=== PATIENT | female | born 1980 | race Caucasian/White ===

== ENCOUNTER → 2016-11-09 | Outpatient (CLI) | payer BC ==
[~2016-11-09] MED LIST: DOCU-150 PO; HYDR-523 PO; ONDA4TAB51 PO
[2016-11-09 07:54] LABS: BASOPHILS % 0.6 % (0.0-2.0); EOSINOPHILS % 2.4 % (0.0-5.0); HEMATOCRIT. 35.8 % (36.0-48.0); HEMOGLOBIN. 11.8 g/dL (12.0-16.0); LYMPHOCYTES % 23.3 % (20.0-50.0); MEAN CORPUSCULAR HEMOGLOBIN 26.9 pg (28.0-32.0); MEAN CORPUSCULAR VOLUME 81.6 fL (81.0-99.0); MEAN PLATELET VOLUME 9.1 fl (7.4-10.4); NEUTROPHILS % 66.7 % (40.0-76.0); PLATELET 302 x1000/uL (130-400); RED BLOOD CELL COUNT 4.39 mill/uL (4.2-5.4); RED CELL DISTRIBUTION WIDTH 15.2 % (11.6-14.6); WHITE BLOOD COUNT 9.5 x1000/uL (4.5-11.0)
[2016-11-09 08:41] LABS: ALANINE AMINOTRANSFERASE 16 IU/L (13-61); ALBUMIN 3.2 g/dL (3.4-5.0); ANION GAP 11; CALCIUM 8.8 mg/dL (8.5-10.1); CARBON DIOXIDE 29 mEq/L (21-32); CHLORIDE 103 mEq/L (98-107); HDL CHOLESTEROL 73 mg/dL (40-59); INDEX HEMOLYSI 1 (1-3); INDEX ICTERIC 1 (1-4); INDEX LIPEMIC 1 (1-3); IRON 51 ug/dL (50-175); LDL CHOLESTEROL 92 mg/dL (5-100); TOTAL IRON BINDING CAPACITY 436 ug/dL (250-450); TRIGLYCERIDE 58 mg/dL (0-150); UREA NITROGEN BLOOD 15 mg/dL (7-21); eGFR > 60 mL/min (>60)
[2016-11-09 08:54] LABS: FOLIC ACID (FOLATE) SERUM 14.4 ng/mL (>5.38)
[2016-11-10 13:06] LABS: VITAMIN D 25-OH 21.9 ng/mL (30.0-100.0)
[2016-11-14 04:20] LABS: CHOCOLATE COCOA ALLERGEN < 0.10 kU/L (Class 0)
== END | disposition home or self-care (01) ==
LOC: LAB 07:19
PROVIDERS: ATTEND Internal Medicine Geriatric Medicine
DX: Z00.00 Encounter for general adult medical examination without abnormal findings (principal)
CPT/HCPCS: 36415; 80053; 80061; 82306; 82607; 82728; 82746; 83540; 83550; 84443; 85025; 86003; 86005; 86592

== ENCOUNTER 2017-05-12 10:37 | Emergency (ER) | payer BC ==
[~2017-05-12] VITALS: Ht 165.1 cm; Wt 86.0 kg
[2017-05-12] MEDS ORDERED: FAMOTIDINE 20MG/2ML VIAL IV STA (11:59)
[2017-05-12] MEDS ORDERED: VISCOUS LIDOCAINE 2% 15 ML UDC PO STA (11:59)
[2017-05-12] MEDS ORDERED: SODIUM CHLORIDE 0.9% 1,000 ML IV ONE (11:59)
[2017-05-12] MEDS ORDERED: MAGNESIUM/ALUMINUM HYDROXIDE/SIMETHICONE 30ML UDC PO STA (11:59)
[2017-05-12 12:12] LABS: HEMATOCRIT. 36.2 % (36.0-48.0); HEMOGLOBIN. 11.9 g/dL (12.0-16.0); MEAN CORPUSCULAR HEMOGLOBIN 27.6 pg (28.0-32.0); MEAN CORPUSCULAR VOLUME 83.8 fL (81.0-99.0); MEAN PLATELET VOLUME 9.1 fl (7.4-10.4); PLATELET 266 x1000/uL (130-400); RED BLOOD CELL COUNT 4.32 mill/uL (4.2-5.4); RED CELL DISTRIBUTION WIDTH 15.4 % (11.6-14.6)
[2017-05-12 12:17] LABS: CHLORIDE 105 mEq/L (98-107)
[2017-05-12 12:18] LABS: PROTHROMBIN TIME 10.1 sec (9.4-11.6)
[2017-05-12 12:28] LABS: CARBON DIOXIDE 27 mEq/L (21-32)
[2017-05-12 13:36] LABS: PLATELET ESTIMATE NORMAL
[2017-05-12] MEDS ORDERED: KETOROLAC 30MG/ML VIAL IV ONE (14:15)
[2017-05-12 15:25] VITALS: BP 128/73
== END 2017-05-12 15:58 | disposition home or self-care (01) ==
LOC: ER 10:46
DX: R10.13 Epigastric pain (principal); R11.0 Nausea; I49.9 Cardiac arrhythmia, unspecified; I95.9 Hypotension, unspecified; I51.9 Heart disease, unspecified
CPT/HCPCS: 36415; 80053; 81025; 83690; 85025; 85610; 96361; 96374; 96375; 99284; J1885; J3490; J7030

== ENCOUNTER → 2018-08-26 | Outpatient (CLI) | payer BC ==
[2018-08-26 09:24] LABS: BASOPHILS % 0.8 % (0.0-2.0); EOSINOPHILS % 1.8 % (0.0-5.0); HEMOGLOBIN. 12.4 g/dL (12.0-16.0); LYMPHOCYTES % 21.5 % (20.0-50.0); MEAN CORPUSCULAR HEMOGLOBIN 29.2 pg (28.0-32.0); MEAN CORPUSCULAR VOLUME 89.4 fL (81.0-99.0); MEAN PLATELET VOLUME 8.8 fl (7.4-10.4); MONOCYTES % 6.9 % (2.0-8.0); PLATELET 298 x1000/uL (130-400); RED BLOOD CELL COUNT 4.25 mill/uL (4.2-5.4); RED CELL DISTRIBUTION WIDTH 14.3 % (11.6-14.6)
[2018-08-26 09:28] LABS: CLARITY URINE CLEAR (CLEAR); COLOR URINE YELLOW (YELLOW); KETONES URINE NEGATIVE (NEGATIVE); LEUKOCYTE ESTERASE URINE NEGATIVE (NEGATIVE); NITRITE URINE NEGATIVE (NEGATIVE); OCCULT BLOOD URINE 3+ (NEGATIVE); PROTEIN URINE NEGATIVE (NEGATIVE); SPECIFIC GRAVITY URINE 1.023 (1.005-1.030); UROBILINOGEN URINE 0.2 E.U./dL (0.2-1.0)
[2018-08-26 09:43] LABS: CHLORIDE 109 mEq/L (98-107)
[2018-08-26 09:49] LABS: TOTAL IRON BINDING CAPACITY 459 ug/dL (250-450)
[2018-08-26 10:16] LABS: VITAMIN B12 SERUM 1517 pg/mL (211-911)
== END | disposition home or self-care (01) ==
LOC: LAB 07:20
PROVIDERS: ATTEND Internal Medicine Geriatric Medicine
DX: Z00.01 Encounter for general adult medical examination with abnormal findings (principal); N39.0 Urinary tract infection, site not specified
CPT/HCPCS: 36415; 82306; 82607; 83540; 83550; 84443; 86592

== ENCOUNTER 2019-06-09 09:43 | Emergency (ER) | payer BC ==
[~2019-06-09] VITALS: Ht 165.1 cm; Wt 82.0 kg
[2019-06-09 10:47] VITALS: BP 121/86
== END 2019-06-09 11:01 | disposition home or self-care (01) ==
LOC: ER 09:43
DX: H10.33 Unspecified acute conjunctivitis, bilateral (principal); L25.9 Unspecified contact dermatitis, unspecified cause; Z98.890 Other specified postprocedural states; Z79.899 Other long term (current) drug therapy
CPT/HCPCS: 99281

== ENCOUNTER → 2019-06-26 | Outpatient (CLI) | payer BC ==
[2019-06-26 16:54] LABS: BASOPHILS % 0.6 % (0.0-2.0); EOSINOPHILS % 1.6 % (0.0-5.0); HEMATOCRIT. 35.4 % (36.0-48.0); HEMOGLOBIN. 11.9 g/dL (12.0-16.0); LYMPHOCYTES % 24.1 % (20.0-50.0); MEAN CORPUSCULAR HEMOGLOBIN 29.9 pg (28.0-32.0); MEAN CORPUSCULAR VOLUME 88.8 fL (81.0-99.0); MONOCYTES % 8.9 % (2.0-8.0); NEUTROPHILS % 64.8 % (40.0-76.0); PLATELET 268 x1000/uL (130-400); RED BLOOD CELL COUNT 3.99 mill/uL (4.2-5.4); RED CELL DISTRIBUTION WIDTH 13.8 % (11.6-14.6)
[2019-06-26 17:01] LABS: CHLORIDE 105 mEq/L (98-107)
[2019-06-26 17:06] LABS: TOTAL IRON BINDING CAPACITY 381 ug/dL (250-450)
[2019-06-26 17:07] LABS: LDL CHOLESTEROL 85 mg/dL (5-100)
[2019-06-26 17:08] LABS: HDL CHOLESTEROL 79 mg/dL (40-59)
[2019-06-26 17:10] LABS: CLARITY URINE CLEAR (CLEAR); COLOR URINE YELLOW (YELLOW); KETONES URINE NEGATIVE (NEGATIVE); LEUKOCYTE ESTERASE URINE NEGATIVE (NEGATIVE); NITRITE URINE NEGATIVE (NEGATIVE); OCCULT BLOOD URINE 1+ (NEGATIVE); PH URINE 6.5 (4.5-8.0); PROTEIN URINE NEGATIVE (NEGATIVE); SPECIFIC GRAVITY URINE 1.013 (1.005-1.030); UROBILINOGEN URINE 0.2 E.U./dL (0.2-1.0)
[2019-06-26 17:19] LABS: FERRITIN 12 ng/mL (10-291)
[2019-06-26 17:31] LABS: VITAMIN B12 SERUM 766 pg/mL (211-911)
== END | disposition home or self-care (01) ==
LOC: LAB 06:38
PROVIDERS: ATTEND Internal Medicine Geriatric Medicine
DX: Z00.00 Encounter for general adult medical examination without abnormal findings (principal)
CPT/HCPCS: 36415; 80061; 81003; 82306; 82607; 82728; 83036; 83540; 83550; 84443; 86592

== ENCOUNTER → 2020-06-18 | Outpatient (CLI) | payer OTHER | END | disposition home or self-care (01) | LOC: LAB 07:43 | PROVIDERS: ATTEND Internal Medicine Critical Care Medicine | DX: Z20.828 Contact with and (suspected) exposure to other viral communicable diseases (principal) | CPT/HCPCS: 87426 ==

== ENCOUNTER 2022-10-27 12:19 | Emergency (ER) | payer BC, OTHER ==
[~2022-10-27] VITALS: Ht 167.6 cm; Wt 104.0 kg
[2022-10-27 12:57] VITALS: BP 150/85
== END 2022-10-27 16:01 | disposition home or self-care (01) ==
LOC: ER 12:19
DX: H61.23 Impacted cerumen, bilateral (principal)
CPT/HCPCS: 69209; 69210; 99282

== ENCOUNTER → 2023-07-27 | Outpatient (CLI) | payer BC ==
[2023-07-27 11:05] LABS: BASOPHILS % 0.5 % (0.0-2.0); EOSINOPHILS % 1.8 % (0.0-5.0); HEMATOCRIT. 38.4 % (36.0-48.0); HEMOGLOBIN. 12.5 g/dL (12.0-16.0); LYMPHOCYTES % 24.7 % (20.0-50.0); MEAN CORPUSCULAR HEMOGLOBIN 28.4 pg (28.0-32.0); MEAN CORPUSCULAR HGB CONC 32.6 g/dL (31.0-37.0); MEAN CORPUSCULAR VOLUME 87.2 fL (81.0-99.0); MEAN PLATELET VOLUME 8.8 fl (7.4-10.4); MONOCYTES % 6.3 % (2.0-8.0); NEUTROPHILS % 66.7 % (40.0-76.0); PLATELET 321 x1000/uL (130-400); RED CELL DISTRIBUTION WIDTH 14.3 % (11.6-14.6)
[2023-07-27 11:34] LABS: ALANINE AMINOTRANSFERASE 13 IU/L (10-49); ALBUMIN 4.1 g/dL (3.2-4.8); ASPARTATE AMINOTRANSFERASE 12 IU/L (<34); BILIRUBIN TOTAL 0.4 mg/dL (0.1-1.0); CARBON DIOXIDE 24 mEq/L (21-32); CHLORIDE 104 mEq/L (98-107); CHOLESTEROL 195 mg/dL (<200); CREATININE 0.6 mg/dL (0.6-1.0); GLUCOSE 98 mg/dL (70-105); HDL CHOLESTEROL 61 mg/dL (>65); LDL CHOLESTEROL 109 mg/dL (5-100); PROTEIN TOTAL 7.3 g/dL (6.0-8.3); SODIUM 136 mEq/L (136-145); T4 FREE 1.14 ng/dL (0.89-1.76); THYROID STIMULATING HORMONE 1.36 uIU/mL (0.55-4.78); TRIGLYCERIDE 72 mg/dL (0-150); UREA NITROGEN BLOOD 16 mg/dL (9-23)
== END | disposition home or self-care (01) ==
LOC: LAB 10:07
PROVIDERS: ATTEND Family Medicine Adult Medicine
DX: Z00.00 Encounter for general adult medical examination without abnormal findings (principal); E78.5 Hyperlipidemia, unspecified; D50.9 Iron deficiency anemia, unspecified
CPT/HCPCS: 36415; 80053; 80061; 83735; 84439; 84443; 84481; 85025

== ENCOUNTER → 2023-08-11 | Outpatient (CLI) | payer BC | END | disposition home or self-care (01) | LOC: RAD 10:37 | DX: M47.817 Spondylosis without myelopathy or radiculopathy, lumbosacral region (principal); M48.07 Spinal stenosis, lumbosacral region; M48.02 Spinal stenosis, cervical region; M25.78 Osteophyte, vertebrae; M47.812 Spondylosis without myelopathy or radiculopathy, cervical region | CPT/HCPCS: 72040; 72100 ==

== ENCOUNTER → 2023-09-14 | Outpatient (CLI) | payer BC | END | disposition home or self-care (01) | LOC: MAMMO 11:11 | PROVIDERS: ATTEND Internal Medicine Geriatric Medicine | DX: Z12.31 Encounter for screening mammogram for malignant neoplasm of breast (principal) | CPT/HCPCS: 77063; 77067 ==

== ENCOUNTER → 2023-09-16 | Outpatient (CLI) | payer BC ==
[2023-09-16 07:56] LABS: CLARITY URINE CLEAR (CLEAR); COLOR URINE YELLOW (YELLOW); GLUCOSE URINE NEGATIVE (NEGATIVE); KETONES URINE NEGATIVE (NEGATIVE); LEUKOCYTE ESTERASE URINE TRACE (NEGATIVE); NITRITE URINE NEGATIVE (NEGATIVE); OCCULT BLOOD URINE 1+ (NEGATIVE); PROTEIN URINE NEGATIVE (NEGATIVE)
[2023-09-16 08:02] LABS: BASOPHILS % 0.5 % (0.0-2.0); EOSINOPHILS % 1.9 % (0.0-5.0); HEMATOCRIT. 38.3 % (36.0-48.0); HEMOGLOBIN. 13.1 g/dL (12.0-16.0); MEAN CORPUSCULAR HGB CONC 34.2 g/dL (31.0-37.0); MEAN CORPUSCULAR VOLUME 84.7 fL (81.0-99.0); MONOCYTES % 6.7 % (2.0-8.0); NEUTROPHILS % 69.9 % (40.0-76.0); PLATELET 304 x1000/uL (130-400); RED BLOOD CELL COUNT 4.53 mill/uL (4.2-5.4); RED CELL DISTRIBUTION WIDTH 14.2 % (11.6-14.6)
[2023-09-16 08:27] LABS: BACTERIA URINE 1+; SQUAMOUS EPITHELIAL CELL URINE 2+ /lpf (RARE/1+); YEAST URINE NONE SEEN
[2023-09-16 08:48] LABS: FERRITIN 27 ng/mL (10-291); FOLIC ACID (FOLATE) SERUM 18.27 ng/mL (>5.38); VITAMIN B12 SERUM 1378 pg/mL (211-911)
[2023-09-16 08:55] LABS: ALANINE AMINOTRANSFERASE 14 IU/L (10-49); ALBUMIN 4.6 g/dL (3.2-4.8); ASPARTATE AMINOTRANSFERASE 15 IU/L (<34); BILIRUBIN TOTAL 0.5 mg/dL (0.1-1.0); C REACTIVE PROTEIN QUANT 5.5 mg/L (0.0-3.0); CALCIUM 9.3 mg/dL (8.7-10.4); CARBON DIOXIDE 25 mEq/L (21-32); CHLORIDE 103 mEq/L (98-107); CHOLESTEROL 197 mg/dL (<200); CREATININE 0.7 mg/dL (0.6-1.0); GLUCOSE 103 mg/dL (70-105); HDL CHOLESTEROL 65 mg/dL (>65); IRON 68 ug/dL (50-170); LDL CHOLESTEROL 113 mg/dL (5-100); POTASSIUM 4.1 mEq/L (3.5-5.1); PROTEIN TOTAL 7.9 g/dL (6.0-8.3); SODIUM 136 mEq/L (136-145); THYROID STIMULATING HORMONE 1.83 uIU/mL (0.55-4.78); TOTAL IRON BINDING CAPACITY 299 ug/dl (250-425); TRIGLYCERIDE 96 mg/dL (0-150); UREA NITROGEN BLOOD 12 mg/dL (9-23)
[2023-09-16 09:04] LABS: ERYTHROCYTE SEDIMENTATION RATE 25 mm/hr (0-20)
[2023-09-17 10:09] LABS: ANTI-DNA DOUBLE STRANDED QUANT 3 IU/mL (0-9); ANTI-NUCLEAR ANTIBODIES DIRECT Negative (Negative)
[2023-09-17 13:06] LABS: VITAMIN D 25-OH 9.6 ng/mL (30.0-100.0)
[2023-09-22 05:09] LABS: HGB A 97.1 % (96.4-98.8); HGB A2 2.9 % (1.8-3.2)
== END | disposition home or self-care (01) ==
LOC: LAB 07:19
PROVIDERS: ATTEND Internal Medicine Geriatric Medicine
DX: Z00.01 Encounter for general adult medical examination with abnormal findings (principal); N39.0 Urinary tract infection, site not specified; E66.01 Morbid (severe) obesity due to excess calories
CPT/HCPCS: 36415; 80053; 80061; 81003; 82306; 82607; 82728; 82746; 83021; 83036; 83540; 83550; 84443; 85025; 85651; 85660; 86038; 86140; 86225; 86592; 86900

== ENCOUNTER → 2023-10-14 | Outpatient (CLI) | payer BC | END | disposition home or self-care (01) | LOC: MRI 16:31 | PROVIDERS: ATTEND Internal Medicine Geriatric Medicine | DX: R51.9 Headache, unspecified (principal) | CPT/HCPCS: 70551 ==

== ENCOUNTER 2024-08-26 07:32 | Emergency (ER) | payer BC ==
[~2024-08-26] VITALS: Ht 165.1 cm; Wt 86.2 kg
[~2024-08-26 07:32] MED LIST changes: -DOCU-150 PO; +DOCU-422 PO
[2024-08-26 08:03] VITALS: O2SAT 96
[2024-08-26 08:04] VITALS: BP 117/63; PULSE 88; RESP 16; TEMP 36.8; O2SAT 96
[2024-08-26] MEDS ORDERED: CHLO473M2 MT (08:40)
[2024-08-26] MEDS ORDERED: AMOX500T2 MT (08:40)
[2024-08-26] MEDS: AMOXICILLIN 500MG CAPSULE PO ONE (09:27)
== END 2024-08-26 09:29 | disposition home or self-care (01) ==
LOC: ER 07:32
DX: K08.89 Other specified disorders of teeth and supporting structures (principal); Z88.5 Allergy status to narcotic agent
CPT/HCPCS: 99283

== ENCOUNTER → 2024-11-10 | Outpatient (CLI) | payer BC ==
[~2024-11-10] MED LIST changes: +AMOX500T2 MT; +CHLO473M2 MT
[2024-11-10 11:51] LABS: CLARITY URINE CLOUDY (CLEAR); COLOR URINE YELLOW (YELLOW); GLUCOSE URINE NEGATIVE (NEGATIVE); KETONES URINE NEGATIVE (NEGATIVE); LEUKOCYTE ESTERASE URINE NEGATIVE (NEGATIVE); NITRITE URINE NEGATIVE (NEGATIVE); OCCULT BLOOD URINE 1+ (NEGATIVE); PH URINE 5.5 (4.5-8.0); PROTEIN URINE NEGATIVE (NEGATIVE); SPECIFIC GRAVITY URINE 1.029 (1.005-1.030); UROBILINOGEN URINE 0.2 E.U./dL (0.2-1.0)
[2024-11-10 11:56] LABS: BASOPHILS % 0.5 % (0.0-2.0); EOSINOPHILS % 2.2 % (0.0-5.0); HEMATOCRIT. 38.1 % (36.0-48.0); HEMOGLOBIN. 12.8 g/dL (12.0-16.0); LYMPHOCYTES % 27.8 % (20.0-50.0); MEAN CORPUSCULAR HEMOGLOBIN 29.3 pg (28.0-32.0); MEAN CORPUSCULAR HGB CONC 33.7 g/dL (31.0-37.0); MEAN PLATELET VOLUME 9.3 fl (7.4-10.4); MONOCYTES % 8.4 % (2.0-8.0); NEUTROPHILS % 61.1 % (40.0-76.0); PLATELET 305 x1000/uL (130-400); RED BLOOD CELL COUNT 4.38 mill/uL (4.2-5.4); WHITE BLOOD COUNT 8.9 x1000/uL (4.5-11.0)
[2024-11-10 12:13] LABS: MUCUS URINE 3+ /lpf (< = 2+); SQUAMOUS EPITHELIAL CELL URINE 3+ /lpf (RARE/1+)
[2024-11-10 12:14] LABS: WBC URINE 0-2 /hpf (0-2)
[2024-11-10 12:17] LABS: BACTERIA URINE 2+
[2024-11-10 12:57] LABS: CHLORIDE 102 mEq/L (98-107); SODIUM 138 mEq/L (136-145)
[2024-11-10 12:58] LABS: CALCIUM 9.1 mg/dL (8.7-10.4); CARBON DIOXIDE 29 mEq/L (21-32)
[2024-11-10 13:03] LABS: CREATININE 0.7 mg/dL (0.6-1.0); GLUCOSE 95 mg/dL (70-105); TRIGLYCERIDE 105 mg/dL (0-150); UREA NITROGEN BLOOD 15 mg/dL (9-23)
[2024-11-10 13:04] LABS: LDL CHOLESTEROL 84 mg/dL (5-100)
[2024-11-10 13:05] LABS: ALANINE AMINOTRANSFERASE 20 IU/L (10-49); ASPARTATE AMINOTRANSFERASE 13 IU/L (<34); BILIRUBIN TOTAL 0.5 mg/dL (0.1-1.0); CHOLESTEROL 160 mg/dL (<200); HDL CHOLESTEROL 63 mg/dL (>65); PROTEIN TOTAL 7.2 g/dL (6.0-8.3)
[2024-11-10 13:07] LABS: THYROID STIMULATING HORMONE 1.12 uIU/mL (0.55-4.78)
[2024-11-10 13:21] LABS: VITAMIN B12 SERUM 655 pg/mL (211-911)
[2024-11-10 13:22] LABS: FERRITIN 24 ng/mL (10-291)
[2024-11-10 13:33] LABS: HEPATITIS B SURFACE ANTIGEN NEGATIVE (Negative)
[2024-11-10 13:54] LABS: HEPATITIS A AB IGM NEGATIVE (Negative); HEPATITIS B CORE AB IGM NEGATIVE (Negative)
[2024-11-10 13:55] LABS: HEPATITIS C AB NON REACTIVE (Neg) (Negative)
== END | disposition home or self-care (01) ==
LOC: LAB 08:39
PROVIDERS: ATTEND Internal Medicine Geriatric Medicine
DX: Z00.01 Encounter for general adult medical examination with abnormal findings (principal)
CPT/HCPCS: 36415; 80053; 80061; 81003; 82306; 82607; 82728; 82746; 83036; 84436; 84443; 85025; 86592; 86705; 86709; 87340

== ENCOUNTER → 2024-12-12 | Outpatient (CLI) | payer BC ==
[2024-12-12 09:40] LABS: CLARITY URINE CLEAR (CLEAR); COLOR URINE YELLOW (YELLOW); GLUCOSE URINE NEGATIVE (NEGATIVE); KETONES URINE NEGATIVE (NEGATIVE); LEUKOCYTE ESTERASE URINE NEGATIVE (NEGATIVE); NITRITE URINE NEGATIVE (NEGATIVE); OCCULT BLOOD URINE TRACE (NEGATIVE); PH URINE 8.5 (4.5-8.0); PROTEIN URINE NEGATIVE (NEGATIVE); UROBILINOGEN URINE 0.2 E.U./dL (0.2-1.0)
[2024-12-12 09:53] LABS: BACTERIA URINE 1+; SQUAMOUS EPITHELIAL CELL URINE 2+ /lpf (RARE/1+); WBC URINE 0-2 /hpf (0-2); YEAST URINE NONE SEEN
== END | disposition home or self-care (01) ==
LOC: US 07:55
PROVIDERS: ATTEND Internal Medicine Geriatric Medicine
DX: N83.202 Unspecified ovarian cyst, left side (principal); R31.0 Gross hematuria; N93.9 Abnormal uterine and vaginal bleeding, unspecified
CPT/HCPCS: 76705; 76770; 76830; 76856; 81001; 81003

== ENCOUNTER → 2025-04-10 | Outpatient (CLI) | payer BC ==
[2025-04-10 11:17] LABS: CREATININE 0.7 mg/dL (0.6-1.0); TRIGLYCERIDE 100 mg/dL (0-150); UREA NITROGEN BLOOD 10 mg/dL (9-23)
[2025-04-10 11:18] LABS: ASPARTATE AMINOTRANSFERASE 15 IU/L (<34); LDL CHOLESTEROL 105 mg/dL (5-100)
[2025-04-10 11:19] LABS: BILIRUBIN TOTAL 0.5 mg/dL (0.1-1.0); PROTEIN TOTAL 7.2 g/dL (6.0-8.3)
[2025-04-10 11:40] LABS: FOLIC ACID (FOLATE) SERUM 14.06 ng/mL (>5.38); VITAMIN B12 SERUM 472 pg/mL (211-911)
[2025-04-10 12:39] LABS: CLARITY URINE CLEAR (CLEAR); COLOR URINE YELLOW (YELLOW); GLUCOSE URINE NEGATIVE (NEGATIVE); KETONES URINE NEGATIVE (NEGATIVE); LEUKOCYTE ESTERASE URINE NEGATIVE (NEGATIVE); NITRITE URINE NEGATIVE (NEGATIVE); OCCULT BLOOD URINE 1+ (NEGATIVE); PH URINE 7.0 (4.5-8.0); PROTEIN URINE NEGATIVE (NEGATIVE); SPECIFIC GRAVITY URINE 1.012 (1.005-1.030); UROBILINOGEN URINE 0.2 E.U./dL (0.2-1.0)
[2025-04-10 12:52] LABS: BACTERIA URINE FEW; SQUAMOUS EPITHELIAL CELL URINE FEW /lpf (RARE/1+); WBC URINE 0-2 /hpf (0-2); YEAST URINE NONE SEEN
[2025-04-11 10:07] LABS: VITAMIN D 25-OH 21.8 ng/mL (30.0-100.0)
[2025-04-11 14:12] LABS: FOLICLE STIMULATING HORMONE 6.9 mIU/mL (.)
== END | disposition home or self-care (01) ==
LOC: US 09:47
PROVIDERS: ATTEND Internal Medicine Geriatric Medicine
DX: D25.9 Leiomyoma of uterus, unspecified (principal); R31.9 Hematuria, unspecified; Z00.01 Encounter for general adult medical examination with abnormal findings
CPT/HCPCS: 36415; 76830; 76856; 80053; 80061; 81001; 81003; 82306; 82607; 82746; 83001; 83036